=== PATIENT | male | born 1960 | race Caucasian/White ===

== ENCOUNTER 2017-04-13 11:32 | Emergency (ER) | payer SELFPAY ==
[~2017-04-13] VITALS: Ht 182.9 cm; Wt 109.1 kg
[2017-04-13 11:45] VITALS: BP 147/100
== END 2017-04-13 13:40 | disposition left against medical advice (07) ==
LOC: ED 11:32
DX: Z53.21 Procedure and treatment not carried out due to patient leaving prior to being seen by health care provider (principal); M25.572 Pain in left ankle and joints of left foot; M25.511 Pain in right shoulder; E10.8 Type 1 diabetes mellitus with unspecified complications; J44.9 Chronic obstructive pulmonary disease, unspecified; M10.9 Gout, unspecified

== ENCOUNTER 2017-10-20 21:13 | Emergency (ER) | payer MEDICARE, MEDICAID ==
[~2017-10-20] VITALS: Ht 182.9 cm; Wt 109.1 kg
[2017-10-20 21:30] VITALS: BP 140/85
[2017-10-20] MEDS ORDERED: BACTRIM DS TAB1 EACH PO (22:11)
== END 2017-10-20 22:17 | disposition home or self-care (01) ==
LOC: ED 21:13
DX: T24.102A Burn of first degree of unspecified site of left lower limb, except ankle and foot, initial encounter (principal); X03.4XXA Hit by object due to controlled fire, not in building or structure, initial encounter; S93.402A Sprain of unspecified ligament of left ankle, initial encounter; L08.9 Local infection of the skin and subcutaneous tissue, unspecified; E11.9 Type 2 diabetes mellitus without complications; I25.2 Old myocardial infarction; I10 Essential (primary) hypertension; Z59.0 Homelessness; F17.210 Nicotine dependence, cigarettes, uncomplicated

== ENCOUNTER 2018-09-14 03:12 | Emergency (ER) | payer MEDICARE, MEDICAID ==
[~2018-09-14 03:12] MED LIST: BACTRIM DS TAB1 EACH PO
[2018-09-14 03:14] VITALS: BP 129/79
[2018-09-14] MEDS ORDERED: ZESTRIL10 M1 PO (03:42)
[2018-09-14] MEDS ORDERED: GLUCOPHAGE500 MG/TAB PO (03:43)
[2018-09-14] MEDS ORDERED: LITHIUM CARBON300 M3 PO (03:43)
[2018-09-14] MEDS ORDERED: AMARYL 2MG T2 MG/TAB PO (03:44)
[2018-09-14 04:07] LABS: EOS # 0.2 (0.04-0.40); EOS % 1.7 % (0.0-4.0); HEMOGLOBIN 15.4 g/dL (13.5-18.0); LYMPH# 2.1 (1.50-4.00); MEAN CELL VOLUME 92 fl (78-100); MEAN CORPUSCULAR HEMOGLOBIN 29 pg (27-31); MEAN CORPUSCULAR HGB CONC 31 g/dL (33-37); MEAN PLATELET VOLUME 9.8 fl (7.4-10.4); MONO # 1.1 (0.20-0.80); PLATELET COUNT 136 K/mm3 (130-400); RED BLOOD COUNT 5.31 M/mm3 (4.20-5.60); RED CELL DISTRIBUTION WIDTH 14.9 % (11.5-14.5); WHITE BLOOD COUNT 13.2 K/mm3 (4.8-10.8)
[2018-09-14 04:16] LABS: NEU # 9.7 (1.40-6.50)
[2018-09-14 04:31] LABS: ALBUMIN 3.8 g/dL (3.5-5.0); CALCIUM 9.9 mg/dL (8.4-10.2); TOTAL BILIRUBIN 0.4 mg/dL (0.2-1.2); TOTAL PROTEIN 6.7 g/dL (6.4-8.3)
[2018-09-14] MEDS ORDERED: PROAIR HFA0.09 MG/AC IH (05:21)
[2018-09-14] MEDS ORDERED: AZITHROMYCIN 250MGPK PO (05:21)
[2018-09-14] MEDS ORDERED: PREDNISONE20 M1 PO (05:21)
== END 2018-09-14 05:30 | disposition home or self-care (01) ==
LOC: ED 03:12
PROVIDERS: Family Medicine
DX: J40 Bronchitis, not specified as acute or chronic (principal); F31.9 Bipolar disorder, unspecified; E11.9 Type 2 diabetes mellitus without complications; I10 Essential (primary) hypertension; F17.210 Nicotine dependence, cigarettes, uncomplicated; Z90.49 Acquired absence of other specified parts of digestive tract; Z98.890 Other specified postprocedural states

== ENCOUNTER 2021-01-04 12:38 | Emergency (ER) | payer MEDICARE ==
[~2021-01-04] VITALS: Wt 112.1 kg
[~2021-01-04 12:38] MED LIST changes: +AMARYL 2MG T2 MG/TAB PO; +AZITHROMYCIN 250MGPK PO; +GLUCOPHAGE500 MG/TAB PO; +LITHIUM CARBON300 M3 PO; +PREDNISONE20 M1 PO; +PROAIR HFA0.09 MG/AC IH; +ZESTRIL10 M1 PO
[2021-01-04] MEDS ORDERED: GLUCOPHAGE PO (12:59)
[2021-01-04] MEDS ORDERED: TYLENOL EXTRA500 M2 PO (13:00)
[2021-01-04 13:57] LABS: BASO # 0.04 (0.02-0.10); EOS # 0.15 (0.04-0.40); EOS % 1.2 % (0.0-4.0); HEMATOCRIT 46.6 % (42.0-52.0); HEMOGLOBIN 15.5 g/dL (13.5-18.0); LYMPH# 1.77 (1.50-4.00); MEAN CELL VOLUME 86 fl (78-100); MEAN CORPUSCULAR HEMOGLOBIN 28 pg (27-31); MEAN CORPUSCULAR HGB CONC 33 g/dL (33-37); MEAN PLATELET VOLUME 10.1 fl (7.4-10.4); MONO # 0.73 (0.20-0.80); NEU # 9.68 (1.40-6.50); PLATELET COUNT 114 K/mm3 (130-400); RED BLOOD COUNT 5.45 M/mm3 (4.20-5.60); WHITE BLOOD COUNT 12.4 K/mm3 (4.8-10.8)
[2021-01-04 14:03] LABS: ALBUMIN 3.8 g/dL (3.5-5.0)
[2021-01-04 14:04] LABS: POTASSIUM 3.9 mmol/L (3.5-5.1); SODIUM 135 mmol/L (136-145)
[2021-01-04 14:08] LABS: TOTAL BILIRUBIN 0.7 mg/dL (0.2-1.2)
[2021-01-04 14:11] LABS: AST-SGOT 20 U/L (5-34)
[2021-01-04 14:12] LABS: ALT/SGPT 24 U/L (0-55)
[2021-01-04 14:19] LABS: CARBON DIOXIDE 16 mmol/L (22-29); GLUCOSE 518 mg/dL (75-110); TROPONIN-I < 0.03 ng/mL (<0.030)
[2021-01-04 15:10] LABS: ERYTHROCYTE SEDIMENTATION RATE 17 mm/hr (0-20)
[2021-01-04 15:13] LABS: URINE APPEARANCE CLEAR; URINE COLOR LIGHT YELLOW; URINE PROTEIN(semi-quant) TRACE mg/dL (NEGATIVE)
[2021-01-04 15:14] LABS: URINE BILIRUBIN NEGATIVE (NEGATIVE); URINE BLOOD NEGATIVE (NEGATIVE); URINE KETONE NEGATIVE (NEGATIVE); URINE LEUKOCYTE ESTERASE NEGATIVE (NEGATIVE); URINE NITRATE NEGATIVE (NEGATIVE); URINE UROBILINOGEN NORMAL (NORMAL); URINE WBC 0-1 /hpf (0-3)
[2021-01-04 16:43] LABS: PARTIAL THROMBOPLASTIN TIME 23.2 SECONDS (21.0-32.0); PROTHROMBIN TIME 10.3 SECONDS (9.0-12.0)
[2021-01-05 10:04] LABS: BASO # 0.03 (0.02-0.10); EOS # 0.32 (0.04-0.40); EOS % 4.5 % (0.0-4.0); HEMOGLOBIN 13.4 g/dL (13.5-18.0); LYMPH# 2.03 (1.50-4.00); MEAN CELL VOLUME 88 fl (78-100); MEAN CORPUSCULAR HEMOGLOBIN 28 pg (27-31); MEAN CORPUSCULAR HGB CONC 32 g/dL (33-37); MEAN PLATELET VOLUME 9.3 fl (7.4-10.4); MONO # 0.47 (0.20-0.80); PLATELET COUNT 91 K/mm3 (130-400); RED BLOOD COUNT 4.75 M/mm3 (4.20-5.60); RED CELL DISTRIBUTION WIDTH 13.2 % (11.5-14.5); WHITE BLOOD COUNT 7.2 K/mm3 (4.8-10.8)
[2021-01-05 10:08] LABS: POTASSIUM 3.8 mmol/L (3.5-5.1)
[2021-01-05 10:09] LABS: CALCIUM 9.1 mg/dL (8.3-10.5)
[2021-01-05 10:10] LABS: TOTAL PROTEIN 6.3 g/dL (6.4-8.3)
[2021-01-05 10:12] LABS: TOTAL BILIRUBIN 0.5 mg/dL (0.2-1.2)
[2021-01-06 15:24] VITALS: BP 171/95
== END 2021-01-06 15:27 | disposition short-term general hospital (02) ==
LOC: ED 12:38
PROVIDERS: Nurse Practitioner; Nurse Practitioner Family
DX: I26.02 Saddle embolus of pulmonary artery with acute cor pulmonale (principal); E11.9 Type 2 diabetes mellitus without complications; J44.9 Chronic obstructive pulmonary disease, unspecified; I10 Essential (primary) hypertension; I25.2 Old myocardial infarction; I25.10 Atherosclerotic heart disease of native coronary artery without angina pectoris; G89.29 Other chronic pain; F17.210 Nicotine dependence, cigarettes, uncomplicated; Z79.899 Other long term (current) drug therapy; Z79.84 Long term (current) use of oral hypoglycemic drugs; Z79.1 Long term (current) use of non-steroidal anti-inflammatories (NSAID); Z20.822 Contact with and (suspected) exposure to COVID-19
CPT/HCPCS: J1644; J1815; J1885; J2060; J2270; J3490; J7030; Q9967

== ENCOUNTER 2021-02-21 12:03 | Emergency (ER) | payer MEDICARE ==
[~2021-02-21] VITALS: Ht 182.9 cm; Wt 112.0 kg
[~2021-02-21 12:03] MED LIST changes: +GLUCOPHAGE PO; +TYLENOL EXTRA500 M2 PO
[2021-02-21 12:44] LABS: BASO # 0.04 K/mm3 (0.02-0.10); EOS # 0.21 K/mm3 (0.04-0.40); EOS % 2.4 % (0.0-4.0); HEMATOCRIT 43.9 % (42.0-52.0); HEMOGLOBIN 14.2 g/dL (13.5-18.0); LYMPH# 2.23 K/mm3 (1.50-4.00); MEAN CELL VOLUME 89 fl (78-100); MEAN CORPUSCULAR HEMOGLOBIN 29 pg (27-31); MEAN CORPUSCULAR HGB CONC 32 g/dL (33-37); MEAN PLATELET VOLUME 9.6 fl (7.4-10.4); MONO # 0.51 K/mm3 (0.20-0.80); PLATELET COUNT 143 K/mm3 (130-400); RED BLOOD COUNT 4.93 M/mm3 (4.20-5.60); RED CELL DISTRIBUTION WIDTH 13.9 % (11.5-14.5); WHITE BLOOD COUNT 8.7 K/mm3 (4.8-10.8)
[2021-02-21] MEDS ORDERED: XARELTO20 MG PO (12:46)
[2021-02-21 12:58] LABS: ALBUMIN 3.9 g/dL (3.5-5.0)
[2021-02-21 12:59] LABS: SODIUM 138 mmol/L (136-145)
[2021-02-21 13:00] LABS: CALCIUM 9.6 mg/dL (8.3-10.5)
[2021-02-21 13:01] LABS: GLUCOSE 323 mg/dL (75-110); TOTAL PROTEIN 7.5 g/dL (6.4-8.3)
[2021-02-21 13:02] LABS: CARBON DIOXIDE 18 mmol/L (22-29)
[2021-02-21 13:03] LABS: TOTAL BILIRUBIN 0.7 mg/dL (0.2-1.2)
[2021-02-21 13:06] LABS: AST-SGOT 32 U/L (5-34)
[2021-02-21 13:08] LABS: ALT/SGPT 34 U/L (0-55)
[2021-02-21 13:19] LABS: TROPONIN-I < 0.03 ng/mL (<0.030)
[2021-02-21 16:06] VITALS: BP 106/88
== END 2021-02-21 16:19 | disposition home or self-care (01) ==
LOC: ED 12:03
PROVIDERS: Physician Assistant
DX: N28.9 Disorder of kidney and ureter, unspecified (principal); E11.65 Type 2 diabetes mellitus with hyperglycemia; I25.10 Atherosclerotic heart disease of native coronary artery without angina pectoris; I25.2 Old myocardial infarction; I10 Essential (primary) hypertension; F17.210 Nicotine dependence, cigarettes, uncomplicated; Z86.718 Personal history of other venous thrombosis and embolism; Z98.61 Coronary angioplasty status; Z79.01 Long term (current) use of anticoagulants; Z79.84 Long term (current) use of oral hypoglycemic drugs; Z79.899 Other long term (current) drug therapy
CPT/HCPCS: Q9967